=== PATIENT | male | born 1985 | race Caucasian/White ===

== ENCOUNTER → 2018-11-04 | Outpatient (REF) | payer BC | LOC: M LAB REF 16:20 | PROVIDERS: ATTEND Physician Assistant Medical | DX: B00.9 Herpesviral infection, unspecified (principal) ==

== ENCOUNTER 2019-05-02 05:03 | Emergency (ER) | payer BC ==
[~2019-05-02] VITALS: Ht 175.3 cm; Wt 88.6 kg
[2019-05-02] MEDS ORDERED: NAPR-837 PO (06:44)
[2019-05-02] MEDS ORDERED: NAPROXEN 250 MG TAB PO ONE (06:45)
--- NOTE | 2019-05-02 08:18 | REP ---
Clinical: Trauma . Technique: Internal rotation, external rotation, and Y view right shoulder . Findings: No acute fracture or dislocation. The acromioclavicular and glenohumeral joints are intact. No periarticular calcifications or degenerative changes are appreciated. Sub acromial space is normal. Surrounding soft tissues are unremarkable. Impression: Normal right shoulder radiographs. Electronically Signed by Tyrone Montemayor MD 05/02/2019 08:09 A
[2019-05-02 08:26] VITALS: BP 121/73
== END 2019-05-02 08:29 | disposition home or self-care (01) ==
LOC: M ED 05:03
DX: S43.51XA Sprain of right acromioclavicular joint, initial encounter (principal); W22.09XA Striking against other stationary object, initial encounter; Y92.330 Ice skating rink (indoor) (outdoor) as the place of occurrence of the external cause; Y93.22 Activity, ice hockey